=== PATIENT | male | born 1975 | race Hispanic/Latino ===

== ENCOUNTER 2019-11-17 12:01 | Emergency (ER) | payer MEDICAID ==
--- NOTE | 2019-11-17 12:34 | History and Physical Report ---
History of Present Illness Chief complaint: He had a seizure History of present illness: 44 YO Male with Seizure Disorder, Psychosis presents to ED for evaluation. Patient is intubated and on ventilatory support at the time of my evaluation and is therefore unable to provide history. Patient history taken from EMS staff, ED staff, as well as family who arrived at the hospital after initial exam and interview. As per family, the patient was found lying down face up with vomitus in his airway and was unresponsive. EMS was notified and upon arrival the patient was found to be in distress and was subsequently transported to [facility] for further evaluation and care. Prior to transportation to [facility] the patient had a n yeny trumpet placed and was subsequently placed on supplemental oxygen via nonrebreather mask due to respiratory distress. Patient was seen and evaluated in the emergency department. Lab and imaging studies reviewed. Patient was found to have pulse oximetry in the 70s and subsequently developed c ardiopulmonary arrest and was initiated on ACLS protocol while in the emergency department. Patient regained a perfusing rhythm but has evidence of anoxic brain injury. Patient intubated and placed on ventilatory support. Patient found to have aspiration pneumonia complicated by sepsis, toxic encephalopathy, acidosis, and acute kidney injury. Patient found to have multiple organ system failure and has poor prognosis. Patient initiated on sepsis protocol and admitted to ICU. Critical care team consult placed in the emergency department. No further history obtainable. No prior admission for review. No medication listed at time of admission for reconciliation. 95 minutes critical care time dedicated to patient care. Past History Past Medical History: seizures, other (See HPI) Past Surgical History: No surgical history, Other (Unable to obtain) Social history: single. denies: smoking, alcohol abuse, prescription drug abuse Family history: no significant family history (Unable to obtain) Medications and Allergies Allergies Allergy/AdvReac Type Severity Reaction Status Date / Time No Known Allergies Allergy Unverified 11/17/19 13:16 Review of Systems ROS unobtainable: due to endotracheal tube, due to mental status Exam - Constitutional Vitals: Temp Pulse Resp BP Pulse Ox 98.2 F 140 H 20 116/80 90 11/17/19 12:24 11/17/19 12:24 11/17/19 12:24 11/17/19 12:24 11/17/19 12:24 General appearance: Present: severe distress - EENT Eyes: Present: miosis ENT: hearing decreased - Neck Neck: Present: supple, normal ROM - Respiratory Respiratory effort: labored Respiratory: bilateral: diminished, rhonchi - Cardiovascular Rhythm: other (Tachycardia) Heart Sounds: Present: S1 & S2. Absent: rub, click - Extremities Extremities: pulses symmetrical, No edema Peripheral Pulses: abnormal (Capillary refill greater than 3.5 seconds) - Integumentary Integumentary: Present: clear, dry, erythema, clammy, decreased turgor - Musculoskeletal Musculoskeletal: generalized weakness - Psychiatric Psychiatric: no appropriate mood/affect, no intact judgment & insight, no memory intact - Neurologic Neurologic: moves all extremities, no gait normal Results - Labs CBC & Chem 7: 11/17/19 13:10 11/17/19 12:58 Assessment and Plan - Patient Problems (1) Severe sepsis Current Visit: Yes Status: Acute Plan to address problem: Sepsis protocol: Admit to ICU, IV antibiotic therapy, CBC, CMP, monitor urine output every shift, strict I's/O, daily weight, serial lactic acid level, chest x-ray, urinalysis, IV fluid resuscitation therapy, IV pressor support to maintain mean arterial blood pressure greater than or equal to 65 The high probability of a clinically significant, sudden or life threatening deterioration of the [cardiac, pulmonary, renal, neuro,] system(s) required my full and direct attention, intervention and personal management. The aggregate critical care time was [95] minutes. This time is in addition to time spent performing reported procedures but includes the following: [x] Data Review and interpretation [x] Patient assessment and monitoring of vital signs [x] Documentation [x] Medication orders and management (2) Aspiration pneumonia Current Visit: Yes Status: Acute Qualifiers: Laterality: bilateral Plan to address problem: Pneumonia protocol, chest x-ray, IV antibiotic therapy, IV fluid resuscitation therapy, submental oxygen, pulse oximetry, blood culture. (3) Acute hypoxemic respiratory failure Current Visit: Yes Status: Acute Plan to address problem: Wean vent as tolerated, critical care team consult placed in the emergency department, pulse oximetry, daily ABG, sedation holiday, spontaneous breathing trial daily. (4) Cardiac arrest Current Visit: Yes Status: Acute Plan to address problem: Patient treated in accordance with ACLS protocol with eventual return of perfusing rhythm. Patient was without perfusing rhythm for 10 to 15 minutes. (5) Anoxic brain injury Current Visit: Yes Status: Acute Plan to address problem: CT head when medically stable, neuro check, supportive care, apnea test when when/if medically stable. (6) Acute kidney injury (HOLLY) with acute tubular necrosis (ATN) Current Visit: Yes Status: Acute Plan to address problem: IV fluid resuscitation therapy, monitor urine output every shift, strict I's/O, monitor serum creatinine, repeat BMP in a.m. (7) Toxic encephalopathy Current Visit: Yes Status: Acute Plan to address problem: CT head, neuro check, aspiration precaution, seizure precautions, treat sepsis. (8) DVT prophylaxis Current Visit: Yes Status: Acute Plan to address problem: SCD to bilateral lower extremities while in bed, prophylactic heparin
[2019-11-17] MEDS ORDERED: SODIUM CHLORIDE 0.9% 1000 ML IV SOLN IV ONE (12:38)
[2019-11-17] MEDS ORDERED: SODIUM CHLORIDE 0.9% 1000 ML 2,000 ML ONE (12:40)
[2019-11-17 13:17] LABS: Bacteria,Urine 2+ /HPF (Negative); Bilirubin,Urine NEG (Negative); Blood,Urine MOD (Negative); Color,Urine Amber (Yellow); Mucus,Urine 1+ /HPF
[2019-11-17 13:19] LABS: Amphetamine Screen,Urine PRESUMPTIVE NEGATIVE; Benzodiazepines Screen,Urine PRESUMPTIVE NEGATIVE; Cannabinoid Screen,Urine PRESUMPTIVE NEGATIVE; Cocaine Screen,Urine PRESUMPTIVE NEGATIVE; Methadone Screen,Urine PRESUMPTIVE NEGATIVE; Opiate Screen,Urine PRESUMPTIVE NEGATIVE
--- NOTE | 2019-11-17 13:25 | XRay Report ---
CHEST 1 VIEW 11/17/2019 12:18 PM INDICATION / CLINICAL INFORMATION: Dyspnea. COMPARISON: None available. FINDINGS: SUPPORT DEVICES: NG tube is coiled in the lower thoracic esophagus. HEART / MEDIASTINUM: No significant abnormality. LUNGS / PLEURA: There is right upper lobe parenchymal opacification. No pneumothorax. ADDITIONAL FINDINGS: No significant additional findings. IMPRESSION: 1. Right lobe parenchymal opacification concerning for pneumonia. 2. NG tube is coiled in the lower thoracic esophagus. Signer Name: Kevin Chua MD Signed: 11/17/2019 1:20 PM Workstation Name: [id number]
[2019-11-17] MEDS ORDERED: NORepinephrine/NS 4 MG-250 ML 4 MG/250 ML BAG IV ONE ×2 (13:49→18:36)
[2019-11-17] MEDS: NORepinephrine/NS 4 MG-250 ML 4 MG/250 ML BAG IV SCH ×2 (13:59→18:37)
--- NOTE | 2019-11-17 13:59 | Emergency Department Report ---
ED General Adult HPI - General Chief complaint: Dyspnea/Respdistress Stated complaint: UNRESPONSIVE Time Seen by Provider: 11/17/19 12:23 Source: EMS Mode of arrival: Ambulatory Limitations: No Limitations - History of Present Illness Initial comments: The patient presents to the emergency department completely obtunded and unresponsive via [facility]. Per EMS they were called for patient having a seizure and upon arrival the patient was lying face up with vomitus in his oral airway. Patient sats were in the low 70s upon arrival and a nasal trumpet was applied and patient was placed on a nonrebreather at 15 L of O2. Palpitations arrival to emergency department he was hypotensive, O2 sats were in the upper 80s low 90s and patient was tachycardic. At this time was determined that the patient needed to be intubated for airway protection and for oxygenation and ventilation. Patient is completely unresponsive and not able to add to the history. Upon patient arriving to the emergency department he was ashen and in severe respiratory distress -: unknown Severity scale (0 -10): 2 Improves with: none Worsens with: none Associated Symptoms: denies other symptoms Treatments Prior to Arrival: none - Related Data Allergies Allergy/AdvReac Type Severity Reaction Status Date / Time No Known Allergies Allergy Unverified 11/17/19 13:16 ED Review of Systems ROS: Stated complaint: UNRESPONSIVE Other details as noted in HPI Comment: Unobtainable due to pts medical conditions ED Past Medical Hx - Past Medical History Previous Medical History?: Yes Hx Seizures: Yes Hx Psychiatric Treatment: Yes - Surgical History Past Surgical History?: No - Social History Smoking Status: Never Smoker Substance Use Type: None ED Physical Exam - General Limitations: No Limitations General appearance: obtunded - Head Head exam: Present: atraumatic, normocephalic - Eye Eye exam: Present: normal appearance, PERRL Pupils: Present: normal accommodation - ENT ENT exam: Present: mucous membranes dry, other (Vomitus i) - Neck Neck exam: Present: normal inspection - Respiratory Respiratory exam: Present: other (Diminished breath sounds throughout all lung shea with rales present) - Cardiovascular Cardiovascular Exam: Present: tachycardia - GI/Abdominal GI/Abdominal exam: Present: soft, normal bowel sounds. Absent: distended, tenderness - Extremities Exam Extremities exam: Present: normal inspection - Neurological Exam Neurological exam: Present: other (GCS 7) - Psychiatric Psychiatric exam: Present: other (Not able to assess due to the patient's condition) - Skin Skin exam: Present: warm, dry, intact, normal color. Absent: rash ED Course Vital Signs 11/17/19 11/17/19 11/17/19 11:48 12:00 12:16 Temperature Pulse Rate 145 H Respiratory 80 H 36 H Rate Blood Pressure 169/77 Blood Pressure [Right] O2 Sat by Pulse 89 52 L 86 Oximetry 11/17/19 11/17/19 11/17/19 12:24 12:33 12:45 Temperature 98.2 F Pulse Rate 140 H 127 H 126 H Respiratory 20 25 H 26 H Rate Blood Pressure 116/82 86/35 Blood Pressure 116/80 [Right] O2 Sat by Pulse 90 68 L 100 Oximetry 11/17/19 11/17/19 11/17/19 12:51 13:00 13:15 Temperature Pulse Rate 126 H 124 H Respiratory 18 14 17 Rate Blood Pressure 71/42 74/35 Blood Pressure [Right] O2 Sat by Pulse 100 96 97 Oximetry 11/17/19 11/17/19 13:24 13:30 Temperature Pulse Rate 123 H 124 H Respiratory 21 Rate Blood Pressure 82/38 82/38 Blood Pressure [Right] O2 Sat by Pulse 97 Oximetry - Central Line Placement Right Femoral Consent Obtained: verbal consent Time Out Performed: Yes Patient Placed on Monitor/Pulse Ox: Yes Prep: mask, gown, gloves Central Line Prep: Chlorhexidine scrub Ultrasound Used for Placement: No Central Line Lumen Inserted: triple Bloods Obtained for Lab: No Central Line Position: good blood return, all ports aspirated, flus, sutured in place with 2-0 Dressing Applied: Tegaderm Patient Tolerated Procedure: well Complications: none - Intubation Time Out Performed: Yes Sedative: Etomidate Mg Given: 20 Paralytic: Rocuronium Mg Given: 50 Laryngoscope: other ([place] scope) ET Tube Size: 8 Tube Secured Depth (cm): 20 Tube Secured Location: lips Tube Placement Confirmation: visualized tube passing t, equal breath sounds bilat, no breath sounds over epi, confirmation by capnometr Patient Tolerated Procedure: well Intubation Complications: none ED Medical Decision Making - Lab Data Result diagrams: 11/17/19 13:10 - Medical Decision Making Plan the patient being intubated patient coded Multiple rounds of CPR were done as well as a CLS medications Please see code sheet Patient had spontaneous return of circulation Patient's O2 sats increased to 100% at the intubation and return of spontaneous circulation Patient received a total of 3 L of fluid with his blood pressure continuing to decline CVL placed and the patient started on pressors. Critical Care Time: Yes Critical care time in (mins) excluding proc time.: 45 Critical care attestation.: If time is entered above; I have spent that time in minutes in the direct care of this critically ill patient, excluding procedure time. ED Disposition Clinical Impression: Respiratory failure, Respiratory arrest, Pneumonia Disposition: [id number] OP ADMIT IP TO THIS HOSP Is pt being admited?: Yes Does the pt Need Aspirin: No Condition: Critical
[2019-11-17] MEDS ORDERED: metroNIDAZOLE/NS 500 MG/100 ML 500 MG/100 ML BAG IV SCH (14:00)
[2019-11-17 14:02] LABS: Basophils % (Auto) 0.3 % (0.0-1.8); Eosinophils % (Auto) 0.1 % (0.0-4.3); Hematocrit 38.9 % (35.5-45.6); Hemoglobin 12.3 gm/dl (11.8-15.2); Lymphocytes # (Auto) 2.9 K/mm3 (1.2-5.4); Lymphocytes % (Auto) 23.5 % (13.4-35.0); Mean Corpuscular HGB Conc 32 % (32-34); Mean Corpuscular Volume 105 fl (84-94); Monocytes # (Auto) 1.1 K/mm3 (0.0-0.8); Monocytes % (Auto) 8.7 % (0.0-7.3); Platelet Count 195 K/mm3 (140-440); Red Blood Count 3.69 M/mm3 (3.65-5.03); Red Cell Distribution Width 13.6 % (13.2-15.2)
[2019-11-17] MEDS ORDERED: INSULIN REGULAR, HUMAN 100 UNITS/1 ML IV ONE (14:09)
[2019-11-17 14:28] LABS: Albumin 2.9 g/dL (3.9-5); INR 1.42 (0.87-1.13); Partial Thromboplastin Time 33.1 Sec. (24.2-36.6)
--- NOTE | 2019-11-17 14:56 | XRay Report ---
CHEST 1 VIEW INDICATION / CLINICAL INFORMATION: ET TUBE advanced. COMPARISON: Chest radiograph earlier same day FINDINGS: SUPPORT DEVICES: Interval placement of endotracheal tube with tip terminating approximately 5 cm abov e the nicole. Enteric tube remains in place with tip coiled in the distal esophagus. HEART / MEDIASTINUM: Stable. LUNGS / PLEURA: No significant change of a right upper lobe pulmonary opacity and probable additional left retrocardiac opacity. No pleural effusion. No pneumothorax. ADDITIONAL FINDINGS: No significant additional findings. IMPRESSION: 1. Interval placement of endotracheal tube terminating 5 cm above the nicole. Enteric tube remains co iled in the distal esophagus, recommend repositioning. Signer Name: Monica Gan MD Signed: 11/17/2019 2:52 PM Workstation Name: [id number]
[2019-11-17 17:10] LABS: ABG Base Excess -10.1 mmol/L (-2.0-3.0); ABG HCO3 20.5 mmol/L (20.0-26.0); ABG Methemoglobin 0.8 % (0.0-1.5); ABG Oxygen Saturation 81.1 % (95.0-99.0); ABG PO2 60.5 mm Hg (80.0-90.0)
[2019-11-17 17:14] LABS: ABG PH 7.091 pH Units (7.350-7.450)
[2019-11-17 17:33] VITALS: BP 70/28
[2019-11-17] MEDS ORDERED: DOPamine/D5W 800 MG/250 ML 800 MG/250 ML BAG IV ONE (18:33)
[2019-11-17] MEDS ORDERED: LORazepam 2 MG/ML VIAL ONE (18:34)
--- NOTE | 2019-11-17 18:56 | Death Note ---
Note Date of : 11/17/19 Time of : 18:45 Time Pronounced: 18:45 - Preliminary Cause of (problem) (1) Severe sepsis Preliminary cause of (2) Aspiration pneumonia Qualifiers: Laterality: bilateral Preliminary cause of (3) Acute hypoxemic respiratory failure Preliminary cause of (4) Cardiac arrest Preliminary cause of (5) Anoxic brain injury Preliminary cause of (6) Acute kidney injury (HOLLY) with acute tubular necrosis (ATN) Preliminary cause of (7) Toxic encephalopathy Preliminary cause of (8) DVT prophylaxis Preliminary cause of
--- NOTE | 2019-11-17 18:56 | Event Note ---
Date: 11/17/19 CODE MARIA ELENA called. I presented to the bedside and the patient was found to be in asystolic arrest. Patient treated in accordance with ACLS protocol without return of perfusing cardiac rhythm. Upon exam patient pupils were fixed and dilated, patient was without respiratory effort, with asystole on bus driver/monitor. Patient pronounced at 1845 hrs. 60 minutes critical care time dedicated to patient care
--- NOTE | 2019-11-17 18:57 | Cat Scan Report ---
CT HEAD WITHOUT CONTRAST INDICATION / CLINICAL INFORMATION: unresponsive. TECHNIQUE: All CT scans at this location are performed using CT dose reduction for ALARA by means of automated e xposure control. COMPARISON: None available. FINDINGS: HEMORRHAGE: No evidence of intracranial hemorrhage or extra-axial fluid collection. EXTRA-AXIAL SPACES: Cortical sulci, sylvian fissures and basilar cisterns have an unremarkable appear ance. VENTRICULAR SYSTEM: The ventricular system is of normal size and configuration. CEREBRAL PARENCHYMA: No areas of abnormal brain parenchymal attenuation are identified. There is no i ndication of recent infarction. MIDLINE SHIFT OR HERNIATION: There is no mass effect. CEREBELLUM / BRAINSTEM: Brainstem and cerebellum have an unremarkable appearance. INTRACRANIAL VESSELS:No abnormalities are identified on this noncontrast head CT. ORBITS: visualized portions of the orbits have an unremarkable appearance. SOFT TISSUES of HEAD: No significant abnormality. CALVARIUM: Evaluation of bone windows reveals no abnormalities. PARANASAL SINUSES / MASTOID AIR CELLS: Air-fluid levels are present in both maxillary sinuses and in the sphenoid sinuses. Mucosal disease is present within multiple ethmoid air cells bilaterally. There is also mucosal thickening in the frontal sinuses. ADDITIONAL FINDINGS: Patient's nasogastric tube is coiled in the oropharynx. IMPRESSION: 1. Pansinusitis. 2. Nasogastric tube coiled in the oropharynx. 3. No acute intracranial abnormality. I called a report regarding nasogastric tube position to the [facility] emergen cy department at about 1750 Central standard time. I was informed that the patient had . Signer Name: Jagdish Sequeira MD Signed: 11/17/2019 6:52 PM Workstation Name: [id number]
[2019-11-17] MEDS ORDERED: DOBUTamine/D5W 500 MG/250 ML 500 MG/250 ML BAG IV SCH (19:00)
[2019-11-17] MEDS ORDERED: HEPARIN 5,000 UNIT/1 ML VIAL SUB-Q SCH (22:00)
[2019-11-18 00:32] LABS: C-Reactive Protein 4.9 mg/dL (0.00-1.30)
[2019-11-19] MEDS ORDERED: SODIUM BICARB 8.4% 50 MEQ/50 ML SYRINGE IV ONE (08:48)
[2019-11-19] MEDS ORDERED: EPINEPHrine 1:10,000 1 MG/10 ML SYRINGE ONE (08:48)
== END 2019-11-17 23:21 | disposition admitted as inpatient to this hospital (09) ==
LOC: ED 12:01 → UNDOADMIN 12:34 → CC1 12:34 → ED 23:21
DX: J96.90 Respiratory failure, unspecified, unspecified whether with hypoxia or hypercapnia (principal); J18.9 Pneumonia, unspecified organism; J32.4 Chronic pansinusitis; Z86.69 Personal history of other diseases of the nervous system and sense organs
CPT/HCPCS: 31500; 36415; 36600; 36680; 70450; 71045; 80053; 80307; 81001; 82140; 82728; 82803; 82962; 83615; 83735; 84145; 85025; 85379; 85610; 85730; 86140; 86850; 86900; 86901; 87040; 87070; 87205; 92950; 96365; 96366; 96367; 96368; 96375; 99291; J1265; J1956; J7030; 87076; 87186; 94002; J0171; J2060